=== PATIENT | female | born 1995 | race Hispanic/Latino ===

== ENCOUNTER 2022-08-23 15:40 | Inpatient (IN) | payer OTHER ==
[2022-08-23] VITALS (8 sets, daily range): BP systolic 118–160; BP diastolic 77–88
[~2022-08-23] VITALS: Ht 162.6 cm; Wt 84.9 kg
[2022-08-23] MEDS ORDERED: PRENTAB9 PO (16:42)
[2022-08-23] MEDS ORDERED: HOME MED LIST COMPLETE! XX SCH (16:45)
[2022-08-23] MEDS ORDERED: METHYLERGONOVINE MALEATE 0.2MG/ML 1ML VIAL IM PRN ×2 (17:35→23:20)
[2022-08-23] MEDS ORDERED: TRANEXAMIC ACID INJection 1,000 MG in NS 100 ML IV PRN (17:35)
[2022-08-23] MEDS ORDERED: OXYTOCIN DRIP 30 UNITS in IV 1 EA IV PRN ×4 (17:35)
[2022-08-23] MEDS ORDERED: LIDOCAINE 1% MDV 20ML VIAL INFIL PRN (17:35)
[2022-08-23] MEDS ORDERED: LR 1,000 ML IV SCH ×2 (17:35→23:20)
[2022-08-23 18:47] LABS: HEMATOCRIT 40.3 % (36.0-47.0); HEMOGLOBIN 13.4 g/dl (12.0-15.5); MEAN CORPUSCULAR HEMOGLOBIN 30.4 pg (27.0-33.0); MEAN CORPUSCULAR HGB CONC 33.3 g/dl (32.0-36.5); MEAN CORPUSCULAR VOLUME 91.4 fl (80.0-96.0); PLATELET COUNT, AUTOMATED 246 10^3/uL (150-450); RED BLOOD COUNT 4.41 10^6/uL (4.00-5.40); WHITE BLOOD COUNT 15.2 10^3/uL (4.0-10.0)
[2022-08-23] MEDS ORDERED: RHOGAM 300MCG (1500IU) INJ IM SCH (23:20)
[2022-08-23] MEDS ORDERED: METOCLOPRAMIDE INJ 10MG/2ML VIAL IV PRN (23:20)
[2022-08-23] MEDS ORDERED: DIBUCAINE 1% OINTMENT 30GM TOP PRN (23:20)
[2022-08-23] MEDS ORDERED: DOCUSATE SODIUM 100MG CAPSULE PO PRN (23:20)
[2022-08-23] MEDS ORDERED: ONDANSETRON 4MG 2ML VIAL IV PRN (23:20)
[2022-08-23] MEDS ORDERED: OXYTOCIN DRIP 30 UNITS in IV 1 EA IV SCH (23:20)
[2022-08-23] MEDS: ACETAMINOPHEN 500 MG TAB PO SCH (23:47)
[2022-08-23] MEDS: IBUPROFEN 800 MG TAB PO SCH (23:48)
[2022-08-24 00:06] VITALS: BP 123/65
[2022-08-24 00:21] VITALS: BP 126/74
[2022-08-24 00:36] VITALS: BP 128/74
[2022-08-24 02:00] VITALS: BP 108/63
[2022-08-24 06:00] VITALS: BP 109/61
[2022-08-24] MEDS: ACETAMINOPHEN 500 MG TAB PO SCH ×5 (06:02→23:46)
[2022-08-24] MEDS: METHYLERGONOVINE MALEATE 0.2 MG TAB PO SCH ×3 (06:02→18:06)
[2022-08-24 07:28] LABS: HEMATOCRIT 35.1 % (36.0-47.0); HEMOGLOBIN 12.1 g/dl (12.0-15.5); MEAN CORPUSCULAR HEMOGLOBIN 30.8 pg (27.0-33.0); MEAN CORPUSCULAR HGB CONC 34.5 g/dl (32.0-36.5); MEAN CORPUSCULAR VOLUME 89.3 fl (80.0-96.0); PLATELET COUNT, AUTOMATED 203 10^3/uL (150-450); RED BLOOD COUNT 3.93 10^6/uL (4.00-5.40); WHITE BLOOD COUNT 18.4 10^3/uL (4.0-10.0)
[2022-08-24] MEDS: PRENATAL VITAMINS CHEWABLE TABLET PO SCH (08:00)
[2022-08-24] MEDS: IBUPROFEN 800 MG TAB PO SCH ×3 (08:00→20:23)
[2022-08-24] MEDS ORDERED: PRENATAL VITAMINS CHEWABLE TABLET PO SCH (09:00)
[2022-08-24 18:00] VITALS: BP 123/79
[2022-08-25] MEDS: ACETAMINOPHEN 500 MG TAB PO SCH (04:59)
[2022-08-25] MEDS: IBUPROFEN 800 MG TAB PO SCH (05:02)
[2022-08-25] MEDS ORDERED: MEASLES,MUMPS,RUBELLA VACCINE INJ (MMR-II) SC.IMMUN ONE (09:00)
[2022-08-25] MEDS: PRENATAL VITAMINS CHEWABLE TABLET PO SCH (09:42)
== END 2022-08-25 12:50 | disposition home or self-care (01) | DRG 807 ==
LOC: M LDO 15:40 → M LDI 17:30 → M OBS 08-24 02:13 → M PED 08-24 10:24 → M OBS 08-24 10:53
PROVIDERS: ADMIT Obstetrics & Gynecology; ATTEND Obstetrics & Gynecology
PROC: 10E0XZZ Delivery of Products of Conception, External Approach (ICD-10-PCS; principal; 2022-08-23)
DX: O48.0 Post-term pregnancy (principal); Z37.0 Single live birth; Z3A.41 41 weeks gestation of pregnancy